=== PATIENT | male | born 1985 | race Two or more races ===

== ENCOUNTER 2019-10-07 03:38 | Emergency (ER) | payer SELFPAY ==
[2019-10-07] MEDS ORDERED: NORMAL SALINE 100 ML IV ONE (05:02)
[2019-10-07] MEDS ORDERED: MIDAZOLAM 2 MG/2 ML INJ IV ONE (05:04)
[2019-10-07] MEDS ORDERED: FENTANYL CITRATE INJ/PF 100 MCG/2 ML AMPUL IV PRN (05:05)
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
--- NOTE | 2019-10-07 07:12 | RADIOLOGY REPORT (SQ) ---
EXAM: X-ray shoulder two views CLINICAL DATA: Status post reduction TECHNICAL DATA: Two x-ray views of the right shoulder were performed on 10/07/2019 at 6:00 AM. COMPARISONS: Prior right shoulder performed on 10/07/2019 at 4:39 AM FINDINGS: Since the prior examination there has been satisfactory closed reduction of the glenohumeral joint dislocation. No definite acute fracture is identified. The acromioclavicular joint is preserved. No arthritis or degenerative change is noted. Bone mineralization is normal. No focal soft tissue abnormalities are identified. IMPRESSION: Satisfactory closed reduction of the right glenohumeral joint dislocation without obvious fracture.
[2019-10-07 08:01] VITALS: BP 129/80
== END 2019-10-07 08:45 | disposition home or self-care (01) ==
LOC: ER 03:38
DX: S43.014A Anterior dislocation of right humerus, initial encounter (principal); M25.511 Pain in right shoulder; Y04.0XXA Assault by unarmed brawl or fight, initial encounter; Y92.59 Other trade areas as the place of occurrence of the external cause
CPT/HCPCS: 99283; 96360; 99152; 73020; 73030; 23650; L3650; J2250; J3010; J7040